=== PATIENT | female | born 1990 | race Caucasian/White ===

== ENCOUNTER 2019-04-22 10:12 | Emergency (ER) | payer OTHER ==
[~2019-04-22] VITALS: Ht 165.1 cm; Wt 52.6 kg
[2019-04-22 10:58] LABS: *BILIRUBIN,URIN NEGATIVE (NEGATIVE); *COLOR,URINE YELLOW (YELLOW); *KETONES,URINE NEGATIVE (NEGATIVE); *UROBILINOGEN,URINE 0.2 E.U./dl (NORMAL); LEUKOCYTE ESTERASE ,URINE NEGATIVE (NEGATIVE); NITRITE, URINE NEGATIVE (NEGATIVE); PH,URINE 6.5 (5.0-8.0); UGLUCOSE NEGATIVE (NEGATIVE)
[2019-04-22 11:24] LABS: *BLOOD, URINE TRACE (NEGATIVE); *CLARITY,URINE HAZY (CLEAR)
[2019-04-22 11:30] LABS: BACTERIA,URINE MODERATE /HPF (NONE SEEN); MUCUS,URINE MODERATE /LPF (0-FEW); SQUAMOUS EPITHELIAL CELL,UR MODERATE /HPF (NONE SEEN)
--- NOTE | 2019-04-22 11:36 | NUR ---
Patient discharged to home in stable conditon. Written and verbal after care instructions given. Patient verbalizes understanding of instructions.
[2019-04-22 11:56] LABS: *URINE HCG, QUAL NEGATIVE (NEGATIVE)
== END 2019-04-22 11:40 | disposition home or self-care (01) ==
LOC: ER 10:12
DX: J02.8 Acute pharyngitis due to other specified organisms (principal)
CPT/HCPCS: 36415; 84703; 86403; 87070; 87086; A4663